=== PATIENT | female | born 1985 | race Caucasian/White ===

== ENCOUNTER 2017-06-26 23:27 | Emergency (ER) | payer SELFPAY ==
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
--- NOTE | 2017-06-27 00:13 | EDPHYS ---
Physician Documentation [facility] Name: Chandrika Alexander Age: 32 yrs Sex: Female : 1985 Arrival Date: 06/26/2017 Time: 23:30 Bed 15 Private MD: ED Physician Adolfo Fleming HPI: 06/27 00:09 This 32 yrs old Female presents to ER via EMS with complaints of ams, denice substance abuse. 00:09 police stop, offered to go to halfway. The patient presents with trouble concentrating. denice Onset: The symptoms/episode began/occurred at an unknown time. Possible causes: drug use, amphetamines. Associated signs and symptoms: The patient has no apparent associated signs or symptoms. Onset: The symptoms/episode began/occurred yesterday. Current symptoms: In the emergency department the patient's symptoms are unchanged from the initial presentation. Patient's baseline: Neuro: alert and fully oriented. Severity of symptoms: At their worst the symptoms were mild in the emergency department the symptoms are unchanged. The patient has experienced similar episodes in the past, a few times. ROVING TECHNICIAN: 06/26 23:38 unable to obtain at this time jd3 Historical: - Allergies: 23:38 Unable to obtain; jd3 - Immunization history:: Adult Immunizations unknown. - Social history:: Smoking status: unknown Patient uses street drugs, cocaine, marijuana. - Family history:: not pertinent. ROS: 06/27 00:11 Constitutional: Negative for fever, chills, and weight loss, Eyes: Negative for injury, denice pain, redness, and discharge, ENT: Negative for injury, pain, and discharge, Neck: Negative for injury, pain, and swelling, Cardiovascular: Negative for chest pain, palpitations, and edema, Respiratory: Negative for shortness of breath, cough, wheezing, and pleuritic chest pain, Abdomen/GI: Negative for abdominal pain, nausea, vomiting, diarrhea, and constipation, Back: Negative for injury and pain, : Negative for injury, bleeding, discharge, and swelling, MS/Extremity: Negative for injury and deformity, Skin: Negative for injury, rash, and discoloration, Psych: Negative for depression, anxiety, suicide ideation, homicidal ideation, and hallucinations, Allergy/Immunology: Negative for hives, rash, and allergies, Endocrine: Negative for neck swelling, polydipsia, polyuria, polyphagia, and marked weight changes. Neuro: Positive for dizziness, weakness. Exam: 00:11 Constitutional: This is a well developed, well nourished patient who is awake, alert, denice and in no acute distress. Head/Face: Normocephalic, atraumatic. Eyes: Pupils equal round and reactive to light, extra-ocular motions intact. Lids and lashes normal. Conjunctiva and sclera are non-icteric and not injected. Cornea within normal limits. Periorbital areas with no swelling, redness, or edema. ENT: Nares patent. No nasal discharge, no septal abnormalities noted. Tympanic membranes are normal and external auditory canals are clear. Oropharynx with no redness, swelling, or masses, exudates, or evidence of obstruction, uvula midline. Mucous membranes moist. Neck: Trachea midline, no thyromegaly or masses palpated, and no cervical lymphadenopathy. Supple, full range of motion without nuchal rigidity, or vertebral point tenderness. No Meningismus. Chest/axilla: Normal chest wall appearance and motion. Nontender with no deformity. No lesions are appreciated. Cardiovascular: Regular rate and rhythm with a normal S1 and S2. No gallops, murmurs, or rubs. Normal PMI, no JVD. No pulse deficits. Respiratory: Lungs have equal breath sounds bilaterally, clear to auscultation and percussion. No rales, rhonchi or wheezes noted. No increased work of breathing, no retractions or nasal flaring. Abdomen/GI: Soft, non-tender, with normal bowel sounds. No distension or tympany. No guarding or rebound. No evidence of tenderness throughout. Back: No spinal tenderness. No costovertebral tenderness. Full range of motion. Skin: Warm, dry with normal turgor. Normal color with no rashes, no lesions, and no evidence of cellulitis. MS/ Extremity: Pulses equal, no cyanosis. Neurovascular intact. Full, normal range of motion. Neuro: Awake and alert, GCS 15, oriented to person, place, time, and situation. Cranial nerves II-XII grossly intact. Motor strength 5/5 in all extremities. Sensory grossly intact. Cerebellar exam normal. Normal gait. Psych: Awake, alert, with orientation to person, place and time. Behavior, mood, and affect are within normal limits. Vital Signs: 06/26 23:38 jd3 23:38 pt rufused jd3 MDM: 23:51 Patient medically screened. [facility] 06/27 00:11 Data reviewed: vital signs, nurses notes. [facility] 06/26 23:45 Order name: EKG; Complete Time: 23:46 [facility] 06/26 23:45 Order name: EKG - Nurse/Tech [facility] 06/26 23:45 Order name: IV Saline Lock [facility] 06/26 23:45 Order name: Labs collected and sent [facility] 06/26 23:45 Order name: Urine Dipstick-Ancillary (obtain specimen) [facility] Administered Medications: 00:53 Not Given (Patient Refused): NS 0.9% 1000 ml IV at 1 bolus Per protocol; 1000 mL bolus jl3 Disposition: 06/27/17 00:13 Discharged to Home. Impression: Abuse of non-psychoactive substances, Weakness. - Condition is Stable. - Discharge Instructions: Polysubstance Abuse, Weakness, Weakness, Weea-ys-Wtjd. - Medication Reconciliation Form, Thank You Letter, Antibiotic Education, Prescription Opioid Use form. - Follow up: Private Physician; When: 2 - 3 days; Reason: Recheck today's complaints, Continuance of care, Re-evaluation by your physician. - Problem is new. - Symptoms have improved. Signatures: Dispatcher [employer] Christoph Devlin rg2 Adolfo Fleming MD MD cha Lowman, John, SALES RECRUITER SALES RECRUITER jl3 Pancho Salter, RN RN jd3
== END 2017-06-27 01:25 | disposition home or self-care (01) ==
LOC: ER 23:27
DX: F55.8 Abuse of other non-psychoactive substances (principal); R53.1 Weakness
CPT/HCPCS: 99284

== ENCOUNTER 2017-06-27 05:50 | Emergency (ER) | payer SELFPAY ==
--- OUTSIDE RECORDS SUMMARY | 2017-06-27 05:53 | XMS REPORT ---
:1985 [facility] Address [address] [place] [address] Care Team Providers Name Role Phone UNKNOWN, REFFERING Primary Care Provider Unavailable Ramon TSAI Unavailable Unavailable Problems This patient has no known problems. Allergies, Adverse Reactions, Alerts This patient has no known allergies or adverse reactions. Medications This patient has no known medications. Encounters Start End Encounter Admission Attending Care Care Encounter Date/Time Date/Time Type Type Clinicians Facility Department ID 2017-06-08 2017-06-08 [facility] [id number] 13:26:00 13:26:00 FERNANDO 2016-10-10 2016-10-10 [facility] [id number] 14:13:00 14:13:00 FER[facility] Results Test Description Test Time Test Comments Text Results Atomic Results Result Comments RPR, Qual 2017-06-13 03:20:00 Test Item Value Reference Range Comments RPR (test code=RPR) Non-Reactive Non-Reactive BHCG, Serum, [id number] 19:32:00 Test Item Value Reference Range Comments Preg Qual [Se] (test code=BSHCG) Negative Negative Alcohol/Ethanol, [id number] 18:59:00 Test Item Value Reference Range Comments Alcohol, Ethyl (test <0.01 g/dL 0.00-0.01 Intoxicated 0.080 g/dL or code=ETOH) more Comprehensive Metabolic [id number] 18:59:00 Test Item Value Reference Range Comments Sodium (test code=NA) 139 mmol/L 135-145 Potassium (test code=K) 4.4 mmol/L 3.5-5.1 Chloride (test code=CL) 106 mmol/L 98-105 Carbon Dioxide (test 25 mmol/L 22-29 code=CO2) Glucose (test code=GLU) 99 mg/dL 70-115 Blood Urea Nitrogen 17 mg/dL 6-20 (test code=BUN) Creatinine (test 1.0 mg/dL 0.5-0.9 code=CREAT) Calcium (test code=CA) 8.6 mg/dL 8.3-10.5 Prot Total (test 5.9 g/dL 6.4-8.3 code=TP) Albumin (test code=ALB) 3.8 g/dL 3.5-5.2 A/G Ratio (test 1.8 Ratio code=AGRATIO) Globulin (test 2.1 2.9-3.1 code=GLOB) Bili Total (test 0.2 mg/dL 0.1-0.9 code=TBIL) Alk Phos (test 69 U/L 35-104 code=APHOS) AST (test code=AST) 10 U/L 1-32 ALT (test code=ALT) 10 U/L 1-33 BUN/Creatinine Ratio 17.0 (test code=BCRATIO) Anion Gap (test 8 mmol/L 7-16 code=AGAP) Estimated GFR (test >60 eGFR (estimated Glomerular code=GFR) mL/min/1.73m2 Filtration Rate) is an estimated value,calculated from the patient's serum creatinine using the MDRD equation.It is NOT the patient's actual GFR. The eGFR provides a more clinicallyuseful measure of kidney disease than serum creatinine alone.This calculation takes sex and race into account, if the informationis provided. If the race is not provided, and the patient isAfrican-Haitian, multiply by 1.212. If sex is not provided, and thepatient is female, multiply by 0.742. Results for patients <18 years ofage have not been validated by the MDRD study and should be interpretedwith caution.eGFR Result Interpretation:eGFR > or=60 is in the Normal RangeeGFR < 60 may mean kidney diseaseeGFR < 15 may mean kidney failureRanges recommended by the National Kidney Foundation,http://nkdep.ni h.gov CBC with [id number] 18:59:00 Test Item Value Reference Range Comments WBC (test code=WBC) 7.8 K/cumm 4.4-10.5 RBC (test code=RBC) 3.85 M/cumm 3.75-5.20 Hemoglobin (test code=HGB) 10.8 gm/dL 12.2-14.8 Hematocrit (test code=HCT) 33.7 % 36.5-44.4 MCV (test code=MCV) 87.5 fL 80-100 MCH (test code=MCH) 28.1 pg 27.0-32.5 MCHC (test code=MCHC) 32.1 g/dL 32.0-37.5 RDW (test code=RDW) 14.0 % 11.5-14.5 Platelet Count (test code=PLTCT) 273 K/cumm 140-440 MPV (test code=MPV) 6.6 fL Diff Method (test code=DIFFM) Auto Neutrophil (test code=NEUT) 65.0 % 36-70 Lymphocyte (test code=LYMPH) 26.4 % 12-44 Monocyte (test code=MONO) 7.0 % 0-11 Eosinophil (test code=EOS) 1.3 % 0-7 Basophil (test code=BASO) 0.3 % 0-2 Neutro Abs (test code=ANEUT) 5.1 K/cumm 1.6-7.4 Lymph Abs (test code=ALYMPH) 2.1 K/cumm 0.5-4.6 Blanco Abs (test code=AMONO) 0.6 K/cumm 0.0-1.2 Eos Abs (test code=AEOS) 0.10 K/cumm 0.00-0.74 Baso Abs (test code=ABASO) 0.0 K/cumm 0.00-0.21 HIV [id number] 21:05:00 Test Item Value Reference Range Comments HIV 1/2 Antibody (test Non-Reactive Non-Reactive HIV1/2 Antibody screen result code=HIV1/2AB) indicates the absence of HIV1 and USX5whseocvbx.However, A Non-Reactive screen result does not rule out exposure orinfection. If an acute infection is suspected, HIV RNA Quantitative is recommended. P24 Antigen (test Non-Reactive Non-Reactive P24 Ag screen result indicates code=P24) the absence of P24 antigen, which is anindicator of HIV-1 acute infection.However, A Non-Reactive screen does not rule out exposure or infection.If acute HIV-1 is suspected, HIV RNA Quantitative is recommended. RPR, [id number] 12:48:00 Test Item Value Reference Range Comments RPR (test code=RPR) Non-Reactive Non-Reactive Thyroid Stimulating Hormone (TSH)2017-01-30 08:32:00 Test Item Value Reference Range Comments TSH (test code=TSH) 1.06 mIU/mL 0.270-4.200 Lipid [id number] 08:26:00 Test Item Value Reference Range Comments Cholesterol (test 134 mg/dL 0-200 code=CHOL) Triglycerides (test 103 mg/dL 9-200 code=TRIG) HDL (test code=HDL) 45 mg/dL 50-60 Chol/HDL (test 3.0 Ratio 0.0-4.4 code=CHOLPHDL) LDL, Calculated (test 68 0-130 (NOTE)RISK OF HEART code=LDLC) DISEASEPublished by Haitian Heart AssociationAnalyte Optimal Boderline Increased RiskCHOL <200 200-239 >240TRIG <150 150-199 >200HDL Male: >60 <40HDL Female: >60 <50LDL <100 130-159 >160LDL NEAR OPTIMAL IS 100-129 VLDL (test code=VLDL) 21 mg/dL 5-40 LDL/HDL (test code=LDLPHDL) 2 BHCG, Serum, [id number] 08:21:00 Test Item Value Reference Range Comments Preg Qual [Se] (test code=BSHCG) Negative Negative CBC with [id number] 13:57:00 Test Item Value Reference Range Comments WBC (test code=WBC) 6.9 K/cumm 4.4-10.5 RBC (test code=RBC) 4.08 M/cumm 3.75-5.20 Hemoglobin (test code=HGB) 11.3 gm/dL 12.2-14.8 Hematocrit (test code=HCT) 35.3 % 36.5-44.4 MCV (test code=MCV) 86.4 fL 80-100 MCH (test code=MCH) 27.7 pg 27.0-32.5 MCHC (test code=MCHC) 32.1 g/dL 32.0-37.5 RDW (test code=RDW) 14.7 % 11.5-14.5 Platelet Count (test code=PLTCT) 303 K/cumm 140-440 MPV (test code=MPV) 7.0 fL Diff Method (test code=DIFFM) Auto Neutrophil (test code=NEUT) 59.3 % 36-70 Lymphocyte (test code=LYMPH) 34.7 % 12-44 Monocyte (test code=MONO) 4.5 % 0-11 Eosinophil (test code=EOS) 1.1 % 0-7 Basophil (test code=BASO) 0.4 % 0-2 Neutro Abs (test code=ANEUT) 4.1 K/cumm 1.6-7.4 Lymph Abs (test code=ALYMPH) 2.4 K/cumm 0.5-4.6 Blanco Abs (test code=AMONO) 0.3 K/cumm 0.0-1.2 Eos Abs (test code=AEOS) 0.07 K/cumm 0.00-0.74 Baso Abs (test code=ABASO) 0.0 K/cumm 0.00-0.21 Comprehensive Metabolic [id number] 13:42:00 Test Item Value Reference Range Comments Sodium (test code=NA) 142 mmol/L 135-145 Potassium (test code=K) 3.9 mmol/L 3.5-5.1 Chloride (test code=CL) 105 mmol/L 98-105 Carbon Dioxide (test 25 mmol/L 22-29 code=CO2) Glucose (test code=GLU) 78 mg/dL 70-115 Blood Urea Nitrogen 19 mg/dL 6-20 (test code=BUN) Creatinine (test 1.0 mg/dL 0.5-0.9 code=CREAT) Calcium (test code=CA) 9.2 mg/dL 8.3-10.5 Prot Total (test 6.4 g/dL 6.4-8.3 code=TP) Albumin (test code=ALB) 3.9 g/dL 3.5-5.2 A/G Ratio (test 1.6 Ratio code=AGRATIO) Globulin (test 2.5 2.9-3.1 code=GLOB) Bili Total (test 0.3 mg/dL 0.1-0.9 code=TBIL) Alk Phos (test 70 U/L 35-104 code=APHOS) AST (test code=AST) 11 U/L 1-32 ALT (test code=ALT) 10 U/L 1-33 BUN/Creatinine Ratio 19.0 (test code=BCRATIO) Anion Gap (test 12 mmol/L 7-16 code=AGAP) Estimated GFR (test >60 eGFR (estimated Glomerular code=GFR) mL/min/1.73m2 Filtration Rate) is an estimated value,calculated from the patient's serum creatinine using the MDRD equation.It is NOT the patient's actual GFR. The eGFR provides a more clinicallyuseful measure of kidney disease than serum creatinine alone.This calculation takes sex and race into account, if the informationis provided. If the race is not provided, and the patient isAfrican-Haitian, multiply by 1.212. If sex is not provided, and thepatient is female, multiply by 0.742. Results for patients <18 years ofage have not been validated by the MDRD study and should be interpretedwith caution.eGFR Result Interpretation:eGFR > or=60 is in the Normal RangeeGFR < 60 may mean kidney diseaseeGFR < 15 may mean kidney failureRanges recommended by the National Kidney Foundation,http://nkdep.ni h.gov Drugs of Abuse Screen, [id number] 02:06:00 Test Item Value Reference Range Comments Amphetamine (test code=AMPH) Negative Negative For diagnostic purposes only, positive results should always be assessedin conjunctionwith the patient's medical history,clinical examination and otherfindings.To fulfill legal requirements, a more specific alternate chemical methodmust be used inorder to obtain a Confirmed analytical result. GC/MS is the preferred confirmatory method. Barbiturates (test code=YFN) Negative Negative Benzodiazepine (test Negative Negative code=ELLIOTT) Cocaine (test code=COCA) Negative Negative Methadone (test code=MTHD) Negative Negative Opiates (test code=OPIA) Negative Negative PCP (test code=PCP) Negative Negative Propoxyphene (test Negative Negative code=PROPOX) THC (test code=THC) POSITIVE Negative RPR, [id number] 02:01:00 Test Item Value Reference Range Comments RPR (test code=RPR) Non-Reactive Non-Reactive Thyroid Stimulating Hormone (TSH)2016-10-10 23:08:00 Test Item Value Reference Range Comments TSH (test code=TSH) 1.65 mIU/mL 0.270-4.200 Urinalysis [id number] 12:51:00 Test Item Value Reference Range Comments Color (test code=COLOR) Yellow Yellow,Straw,Pl yellow Clarity (test code=CLAR) Clear Clear Specific Powell (test code=SPGR) 1.015 1.001-1.035 pH (test code=PH) 6.5 5.0-9.0 Ketone (test code=KET) Negative mg/dL Negative Glucose (test code=GLUCUR) Negative mg/dL Negative Protein (test code=PROT) Negative mg/dL Negative Bilirubin (test code=BILI) Negative mg/dL Negative Occult Blood (test code=UDOB) Mod to Large Negative Urobilinogen (test code=UROB) 0.2 mg/dL 0.2-1.0 Nitrite (test code=NIT) Negative Negative Leuk Esterase (test code=LEUK) Large Negative Micros Exam (test code=MEXAM) Indicated Epithelial Cells (test code=EPI) 6-9 /LPF 0-30 WBC, Urine (test code=UWBC) 20-29 /HPF 0-5 RBC, Urine (test code=URBC) 3-5 /HPF 0-5 Bacteria (test code=BACT) Moderate /HPF CBC with [id number] 12:31:00 Test Item Value Reference Range Comments WBC (test code=WBC) 8.3 K/cumm 4.4-10.5 RBC (test code=RBC) 4.21 M/cumm 3.75-5.20 Hemoglobin (test code=HGB) 11.4 gm/dL 12.2-14.8 Hematocrit (test code=HCT) 35.4 % 36.5-44.4 MCV (test code=MCV) 83.9 fL 80-100 MCH (test code=MCH) 27.1 pg 27.0-32.5 MCHC (test code=MCHC) 32.3 g/dL 32.0-37.5 RDW (test code=RDW) 15.4 % 11.5-14.5 Platelet Count (test code=PLTCT) 270 K/cumm 140-440 MPV (test code=MPV) 7.1 fL Diff Method (test code=DIFFM) Auto Neutrophil (test code=NEUT) 74.2 % 36-70 Lymphocyte (test code=LYMPH) 17.9 % 12-44 Monocyte (test code=MONO) 5.9 % 0-11 Eosinophil (test code=EOS) 1.4 % 0-7 Basophil (test code=BASO) 0.5 % 0-2 Neutro Abs (test code=ANEUT) 6.1 K/cumm 1.6-7.4 Lymph Abs (test code=ALYMPH) 1.5 K/cumm 0.5-4.6 Blanco Abs (test code=AMONO) 0.5 K/cumm 0.0-1.2 Eos Abs (test code=AEOS) 0.12 K/cumm 0.00-0.74 Baso Abs (test code=ABASO) 0.0 K/cumm 0.00-0.21 BHCG, Urine, [id number] 12:25:00 Test Item Value Reference Range Comments Preg Qual [Ur] (test code=HUHCG) Negative Negative Comprehensive Metabolic [id number] 12:24:00 Test Item Value Reference Range Comments Sodium (test code=NA) 138 mmol/L 135-145 Potassium (test code=K) 3.9 mmol/L 3.5-5.1 Chloride (test code=CL) 107 mmol/L 98-105 Carbon Dioxide (test 21 mmol/L 22-29 code=CO2) Glucose (test code=GLU) 90 mg/dL 70-115 Blood Urea Nitrogen 7 mg/dL 6-20 (test code=BUN) Creatinine (test 0.7 mg/dL 0.5-0.9 code=CREAT) Calcium (test code=CA) 8.3 mg/dL 8.3-10.5 Prot Total (test 5.8 g/dL 6.4-8.3 code=TP) Albumin (test code=ALB) 3.5 g/dL 3.5-5.2 A/G Ratio (test 1.5 Ratio code=AGRATIO) Globulin (test 2.3 2.9-3.1 code=GLOB) Bili Total (test 0.4 mg/dL 0.1-0.9 code=TBIL) Alk Phos (test 87 U/L 35-104 code=APHOS) AST (test code=AST) 12 U/L 1-32 ALT (test code=ALT) 14 U/L 1-33 BUN/Creatinine Ratio 10.0 (test code=BCRATIO) Anion Gap (test 10 mmol/L 7-16 code=AGAP) Estimated GFR (test >60 eGFR (estimated Glomerular code=GFR) mL/min/1.73m2 Filtration Rate) is an estimated value,calculated from the patient's serum creatinine using the MDRD equation.It is NOT the patient's actual GFR. The eGFR provides a more clinicallyuseful measure of kidney disease than serum creatinine alone.This calculation takes sex and race into account, if the informationis provided. If the race is not provided, and the patient isAfrican-Haitian, multiply by 1.212. If sex is not provided, and thepatient is female, multiply by 0.742. Results for patients <18 years ofage have not been validated by the MDRD study and should be interpretedwith caution.eGFR Result Interpretation:eGFR > or=60 is in the Normal RangeeGFR < 60 may mean kidney diseaseeGFR < 15 may mean kidney failureRanges recommended by the National Kidney Foundation,http://nkdep.ni h.gov
--- OUTSIDE RECORDS SUMMARY | 2017-06-27 05:53 | XMS REPORT | Clinical Summary ---
:1985 Author Organization [facility] Address [address] [place] [address] Care Team Providers Name Role Phone Asked, No Pcp Primary Care Provider Unavailable Allergies No Known Allergies Current Medications Prescription Sig. Disp. Refills Start Date End Date Status FLUoxetine (PROzac) 20 MG Take 20 mg by Active capsule mouth. Active Problems Not on file Encounters Date Type Specialty Care Team Description 08/24/2016 - Emergency Emergency Medicine Bulmaro Miller Other depression 08/26/2016 MD Issa (Primary Dx) Thanh Estevez MD after 06/26/2016 Social History Tobacco Use Types Packs/Day Years Used Date Never Smoker Alcohol Use Drinks/Week oz/Week Comments Yes social drinker Sex Assigned at Date Recorded Not on file Last Filed Vital Signs Vital Sign Reading Time Taken Blood Pressure 119/68 08/26/2016 10:06 AM CDT Pulse 84 08/26/2016 10:06 AM CDT Temperature 36.6 C (97.9 F) 08/26/2016 10:06 AM CDT Respiratory Rate 16 08/26/2016 10:06 AM CDT Oxygen Saturation 96% 08/26/2016 10:06 AM CDT Inhaled Oxygen Concentration - - Weight - - Height 165.1 cm (5' 5") 08/24/2016 10:47 PM CDT Body Mass Index - - Plan of Treatment Not on file Results ECG ED Preliminary Interpretation - NOT AN ORDER (09/19/2016 3:48 PM) Narrative Bulmaro Miller MD 09/19/20163:48 PM ECG ED Preliminary Interpretation - Not an Order Performed by: BULMARO MILLER Authorized by: BULMARO MILLER ECG reviewed by ED Physician in the absence of a nurse: yes Interpretation: Interpretation: abnormal Rate: ECG rate:70 ECG rate assessment: normal Rhythm: Rhythm: sinus rhythm QRS: QRS axis:Normal QRS intervals:Normal Conduction: Conduction: normal ST segments: ST segments:Normal T waves: T waves: normal Comments: Abnormal ECG with no significant change. Urinalysis screen and microscopy, with reflex to culture (08/24/2016 10:10 PM) Component Value Ref Range Specimen site Clean catch Color, UA Dark Yellow Appearance, UA Hazy Specific gravity, UA 1.029 1.001 - 1.035 pH, UA 5.0 5.0 - 8.5 Protein, UA 1+ (A) Negative Glucose, UA Negative Negative Ketones, UA Negative Negative Bilirubin, UA Negative Negative Blood, UA Negative Negative Nitrite, UA Positive (A) Negative Urobilinogen, UA <2.0 <2.0 Leukocyte esterase, UA Large (A) Negative WBC, UA 145 (H) 0 - 4 /HPF RBC, UA 14 (H) 0 - 2 /HPF Bacteria, UA Many (A) None seen Yeast, UA None seen Yeast with pseudohyphae, UA None seen Calcium oxalate crystals, UA Few Specimen Performing Laboratory Urine [facility] DEPARTMENT OF PATHOLOGY AND [employer] MEDICINE [address] [place] [address] Estimated GFR (08/24/2016 10:10 PM) Component Value Ref Range GFR Non Af Amer 65 mL/min/1.73 m2 GFR Af Amer 79 mL/min/1.73 m2 Comment: Chronic kidney disease: <60 mL/min/1.73m2 Kidney failure: <15 mL/min/1.73m2 The estimated GFR is calculated from the IDMS-traceable Modification of Diet in Renal Disease Equation. The accuracy of the calculation is poor when the creatinine is normal. Calculated values >90 mL/min/1.73m2 are not reported. This equation has not been validated in children (<18 years), women, the elderly (>70 years), or ethnic groups other than Caucasians and Americans. Specimen Performing Laboratory Plasma specimen [facility] DEPARTMENT OF PATHOLOGY AND [employer] MEDICINE [address] [place] [address] hCG qualitative, urine screen (08/24/2016 10:10 PM) Component Value Ref Range hCG qualitative, urine NegativeComment: Sensitivity of HCG test: 25 mIU/mL Specimen Performing Laboratory Urine [facility] DEPARTMENT OF PATHOLOGY AND GENOMIC MEDICINE [address] [place] [address] Urine drugs of abuse screen (08/24/2016 10:10 PM) Component Value Ref Range Amphetamine screen, urine Negative Barbiturate screen, urine Negative Benzodiazepine screen, urine Negative Cannabinoid screen, urine Positive (A) Cocaine screen, urine Positive (A) Methadone metabolite (EDDP), urine Negative Opiates screen, urine Negative Oxycodone screen, urine Negative Phencyclidine screen, urine Negative Tricyclic screen, urine Negative Comment: Drug screen minimum concentration of detectability Wmzempnrqoeo6145 ng/mL Barbiturates 200 ng/mL Dyhoofmqdpabcwy413 ng/mL Zeingoj633 ng/mL Ewjwqwrea120 ng/mL Ltuygdu041 ng/mL Zbunfgmgb364 ng/mL Phencyclidine 25 ng/mL Jckqmkoeuqew39 ng/mL Kghyaugvwa7797 ng/mL Negative test results indicates presumptive evidence of lack of clinically significant drug concentration in this urine specimen. Positive test results are presumptive evidence of clinically significant drug concentration in this urine specimen. Testing performed for medical purposes only. Specimen Performing Laboratory Urine [facility] DEPARTMENT OF PATHOLOGY AND GENOMIC MEDICINE [address] [place] [address] Gram stain (08/24/2016 10:10 PM) Component Value Ref Range Gram stain isolate Many WBC's Occasional Gram negative rods Comment: Specimen Information Specimen Source: Urine Specimen Site: Clean catch Specimen Performing Laboratory Urine [facility] DEPARTMENT OF PATHOLOGY AND [facility] MEDICINE [address] [place] [address] CBC with platelet and differential (08/24/2016 10:10 PM) Component Value Ref Range WBC 8.32 4.50 - 11.00 k/uL RBC 4.25 4.20 - 5.50 m/uL HGB 11.7 (L) 12.0 - 16.0 g/dL HCT 37.4 37.0 - 47.0 % MCV 88.0 82.0 - 100.0 fL MCH 27.5 27.0 - 34.0 pg MCHC 31.3 31.0 - 37.0 g/dL RDW - SD 46.6 37.0 - 55.0 fL MPV 9.7 8.8 - 13.2 fL Platelet count 207 150 - 400 k/uL Nucleated RBC 0.00 /100 WBC Neutrophils 54.5 39.0 - 69.0 % Lymphocytes 35.6 25.0 - 45.0 % Monocytes 7.9 0.0 - 10.0 % Eosinophils 0.8 0.0 - 5.0 % Basophils 0.5 0.0 - 1.0 % Immature granulocytes 0.7Comment: "Immature granulocytes" 0.0 - 1.0 % (promyelocytes, myelocytes, metamyelocytes) Specimen Performing Laboratory Blood [facility] DEPARTMENT OF PATHOLOGY AND GENOMIC MEDICINE [address] [place] [address] Urine culture (08/24/2016 10:10 PM) Component Value Ref Range Urine culture isolate Escherichia coli >10-5 cfu/ml (A) Comment: Specimen Information Specimen Source: Urine Specimen Site: Clean catch Urine culture isolate Streptococcus group B 10-3 cfu/ml (A) Urine culture isolate Mixed Gram positive mica 10-4 cfu/ml (A) Specimen Performing Laboratory Urine [facility] DEPARTMENT OF PATHOLOGY AND GENOMIC MEDICINE [address] [place] [address] Organism Antibiotic Method Susceptibility Escherichia coli Ampicillin NINO <=2 mcg/mL: Susceptible Escherichia coli Amoxicillin/Clavulanate NINO 4/2 mcg/mL: Susceptible Escherichia coli Amikacin NINO <=4 mcg/mL: Susceptible Escherichia coli Aztreonam NINO <=1 mcg/mL: Susceptible Escherichia coli Ceftazidime NINO <=0.5 mcg/mL: Susceptible Escherichia coli Ciprofloxacin NINO <=0.5 mcg/mL: Susceptible Escherichia coli Ceftriaxone NINO <=0.5 mcg/mL: Susceptible Escherichia coli Cefuroxime Sodium NINO <=4 mcg/mL: Susceptible Escherichia coli Cefazolin NINO <=1 mcg/mL: Susceptible Escherichia coli Cefipime NINO <=0.5 mcg/mL: Susceptible Escherichia coli Nitrofurantoin NINO <=16 mcg/mL: Susceptible Escherichia coli Cefoxitin NINO <=4 mcg/mL: Susceptible Escherichia coli Gentamicin NINO <=1 mcg/mL: Susceptible Escherichia coli Imipenem NINO <=0.25 mcg/mL: Susceptible Escherichia coli Levofloxacin NINO <=1 mcg/mL: Susceptible Escherichia coli Meropenem NINO <=0.125 mcg/mL: Susceptible Escherichia coli Tobramycin NINO 2 mcg/mL: Susceptible Escherichia coli Ampicillin/Sulbactam NINO 2/1 mcg/mL: Susceptible Escherichia coli Trimethoprim/Sulfamethoxazole NINO >2/38 mcg/mL: Resistant Escherichia coli Tetracycline NINO >8 mcg/mL: Resistant Escherichia coli Piperacillin/Tazobactam NINO <=2/4 mcg/mL: Susceptible Escherichia coli Ertapenem NINO <=0.125 mcg/mL: Susceptible Thyroid stimulating hormone (08/24/2016 10:10 PM) Component Value Ref Range TSH 3.59 0.27 - 4.20 uIU/mL Specimen Performing Laboratory Plasma specimen [facility] DEPARTMENT OF PATHOLOGY AND [facility] MEDICINE [address] [place] [address] T4, free (08/24/2016 10:10 PM) Component Value Ref Range T4, free 1.1 0.9 - 1.7 ng/dL Specimen Performing Laboratory Plasma specimen [facility] DEPARTMENT OF PATHOLOGY [facility] MEDICINE [address] [place] [address] Alcohol level, blood (08/24/2016 10:10 PM) Component Value Ref Range Alcohol None Detected mg/dL Comment: Normal None Detected Legal Intoxication in [place]80 mg/dL (0.08%) - Whole Blood Toxic Owdzdntlnycss974 mg/dL (0.2%) Potentially Yuezy463 - 500 mg/dL (0.35 - 0.5%) Alcohol percent None Detected % Specimen Performing Laboratory Plasma specimen [facility] DEPARTMENT PATHOLOGY [address] [address] Acetaminophen level (08/24/2016 10:10 PM) Component Value Ref Range Acetaminophen level <15.0 10.0 - 30.0 ug/mL Comment: Therapeutic 10-30 ug/mL Possible Toxicity 150-200 ug/mL Probable Toxicity >200 ug/mL Specimen Performing Laboratory Plasma specimen [facility] DEPARTMENT OF PATHOLOGY [facility] [address] [place] [address] Salicylate level (08/24/2016 10:10 PM) Component Value Ref Range Salicylate <3.0 3.0 - 30.0 mg/dL Specimen Performing Laboratory Plasma specimen [facility] DEPARTMENT OF PATHOLOGY [facility] [address] [place] [id number] Comprehensive metabolic panel (08/24/2016 10:10 PM) Component Value Ref Range Sodium 141 135 - 148 mEq/L Potassium 3.9 3.5 - 5.0 mEq/L Chloride 103 98 - 112 mEq/L CO2 23 (L) 24 - 31 mEq/L Anion gap 15 7 - 15 mEq/L Comment: Starting from June , anion gap calculation no longer incorporates potassium. Please note the change. BUN 18 6 - 20 mg/dL Creatinine 1.0 (H) 0.5 - 0.9 mg/dL Glucose 84 65 - 99 mg/dL Calcium 8.9 8.3 - 10.2 mg/dL Protein 6.4 6.3 - 8.3 g/dL Comment: [place] 4.6-7.0 g/dL 1 week 4.4-7.6 g/dL 7 months-1year5.1-7.3 g/dL 1-2 years5.6-7.5 g/dL >3 years6.0-8.0 g/dL 18-150 6.3-8.3 g/dL Albumin 3.3 (L) 3.5 - 5.0 g/dL A/G ratio 1.1 0.7 - 3.8 Alkaline phosphatase 72 35 - 104 U/L AST 11 10 - 35 U/L ALT 14 5 - 50 U/L Total bilirubin <0.2 0.0 - 1.2 mg/dL Specimen Performing Laboratory Plasma specimen [facility] DEPARTMENT OF PATHOLOGY AND GENOMIC MEDICINE [address] [place] [address] ECG 12 lead (08/24/2016 9:58 PM) Component Value Ref Range Ventricular rate 70 Atrial rate 70 RI interval 122 QRSD interval 76 QT interval 396 QTC interval 427 P axis 1 88 QRS axis 1 -12 T wave axis -2 EKG impression Normal sinus rhythm-Moderate voltage criteria for LVH, may be normal variant-Borderline ECG-No previous ECGs available- Specimen Performing Laboratory [facility] [address] [place] [address] after 06/26/2016
--- NOTE | 2017-06-27 06:57 | EDPHYS ---
Physician Documentation [facility] Name: Chandrika Alexander Age: 32 yrs Sex: Female : 1985 Arrival Date: 06/27/2017 Time: 05:51 Bed 18 Private MD: ED Physician Adolfo Fleming HPI: 06/27 05:58 This 32 yrs old Female presents to ER via EMS with complaints of suicidal kb ideations. 05:58 The patient presents to the emergency department with suicide ideation, and the patient kb has a plan, to shoot self. Onset: The symptoms/episode began/occurred "when I was little". Past psychiatric history: the patient has a previous inpatient psychiatric history, at [facility]. Associated signs and symptoms: Pertinent positives; suicide ideation, Pertinent negatives: abdominal pain, anxiety, chest pain, chills, delusions, depression, fever, hallucinations, headache, homicidal ideation, nausea, night sweats, palpitations, paranoia, shortness of breath, substance abuse, tremor, vomiting. Severity of symptoms: At their worst the symptoms were moderate in the emergency department the symptoms are unchanged. The patient has experienced similar episodes in the past, multiple times. The patient has been recently seen at the [facility] Emergency Department, today, for unrelated complaints. Pt states she called 911 because she needed to come here to get transported to [facility]. States she is having suicidal ideations that started when she was a child. Her plan is to shoot herself behind a trash can at the [employer] in [place]. States she does not have access to a gun, but would steal. Pt was going to be arrested by [employer] for public intoxication, but told them she was suicidal so they called EMS to bring her to the ER. . SPANISH TUTOR: 07:11 pt refused to answer questions [id number] Historical: - Allergies: 05:56 Unable to obtain; aa1 - Home Meds: 05:56 Unable to obtain [Active]; aa1 - PMHx: 05:56 Unable to obtain; aa1 - PSHx: 05:56 Unable to obtain; aa1 - Immunization history:: Adult Immunizations unknown. - Social history:: Smoking status: unknown Patient uses street drugs, cocaine, marijuana. - Unable to obtain history due to: patient being uncooperative. ROS: 05:58 Constitutional: Negative for fever, chills, and weight loss, Cardiovascular: Negative kb for chest pain, palpitations, and edema, Respiratory: Negative for shortness of breath, cough, wheezing, and pleuritic chest pain, Abdomen/GI: Negative for abdominal pain, nausea, vomiting, diarrhea, and constipation, Back: Negative for injury and pain, : Negative for injury, bleeding, discharge, and swelling, MS/Extremity: Negative for injury and deformity, Skin: Negative for injury, rash, and discoloration, Neuro: Negative for headache, weakness, numbness, tingling, and seizure. 05:58 Psych: Positive for suicidal ideation, Negative for anxiety, depression, drug dependence, alcohol dependence, auditory hallucinations, visual hallucinations, homicidal ideation, insomnia, suicide gesture. Exam: 05:58 Constitutional: This is a well developed, well nourished patient who is awake, alert, kb and in no acute distress. Head/Face: Normocephalic, atraumatic. Chest/axilla: Normal chest wall appearance and motion. Nontender with no deformity. No lesions are appreciated. Cardiovascular: Regular rate and rhythm with a normal S1 and S2. No gallops, murmurs, or rubs. Normal PMI, no JVD. No pulse deficits. Respiratory: Lungs have equal breath sounds bilaterally, clear to auscultation and percussion. No rales, rhonchi or wheezes noted. No increased work of breathing, no retractions or nasal flaring. Abdomen/GI: Soft, non-tender, with normal bowel sounds. No distension or tympany. No guarding or rebound. No evidence of tenderness throughout. Skin: Warm, dry with normal turgor. Normal color with no rashes, no lesions, and no evidence of cellulitis. MS/ Extremity: Pulses equal, no cyanosis. Neurovascular intact. Full, normal range of motion. Neuro: Awake and alert, GCS 15, oriented to person, place, time, and situation. Cranial nerves II-XII grossly intact. Motor strength 5/5 in all extremities. Sensory grossly intact. Cerebellar exam normal. Normal gait. 05:58 Psych: Behavior/mood is suicidal, Affect is flat, Oriented to person, place, time, Patient having thoughts of suicide. Plan for suicide is shoot self Judgement / Insight is normal. Memory is normal. Delusions/hallucinations are not present. Vital Signs: 05:56 BP 103 / 71; Pulse 71; Resp 16; Temp 98.1; Pulse Ox 100% on R/A; Weight 72.57 kg (R); aa1 MDM: 05:51 Patient medically screened. kb 05:58 Data reviewed: vital signs, nurses notes. Data interpreted: Pulse oximetry: on room air kb is 100 %. Interpretation: normal. 06:49 ED course: Nurse went in to draw blood, pt refused and said "I just want a discharge." kb Pt told nurse she just wanted a place to sleep and something to eat. . 06:54 Counseling: I had a detailed discussion with the patient and/or guardian regarding: the kb historical points, exam findings, and any diagnostic results supporting the discharge/admit diagnosis, the need for outpatient follow up, a psychiatrist, to return to the emergency department if symptoms worsen or persist or if there are any questions or concerns that arise at home. ED course: Pt refusing care here. States she just wanted a place to sleep and now wants to leave. . 06:58 ED course: [facility] spoke with pt. Pt reports she is not currently kb suicidal. Pt admitted to using cocaine at midnight and smoking marijuana after leaving here earlier in the night. . Administered Medications: No medications were administered Disposition: 06/27/17 06:56 Discharged to Home. Impression: Cocaine abuse. - Condition is Stable. - Discharge Instructions: Polysubstance Abuse. - Medication Reconciliation Form, Thank You Letter, Antibiotic Education, Prescription Opioid Use form. - Follow up: Emergency Department; When: As needed; Reason: Worsening of condition. Follow up: Private Physician; When: 2 - 3 days; Reason: Recheck today's complaints, Continuance of care, Re-evaluation by your physician. Addendum: 06/29/2017 07:11 Co-signature as Attending Physician, Adolfo Fleming MD I agree with the assessment and c perez plan of care. Signatures: Dispatcher [employer] EDCarolin Zavala FNP-C FNP-Sommer Coombs, RN RN aa1 Adolfo Fleming MD MD cha Davies, Jonathon RN RN jd3 Corrections: (The following items were deleted from the chart) 06/27 06:57 05:58 Pt states she called 911 because she needed to come here to get transported to [facility]. States she is having suicidal ideations that started when she was a child. Her plan is to shoot herself behind a trash can at the [employer] in [place]. States she does not have access to a gun, but would steal.. 07:08 05:58 Urine Test ordered. j 07: 05:58 EKG - Nurse/Tech ordered. [facility] 07: 05:58 IV Saline Lock ordered. j 07: 05:58 Labs collected and sent ordered. [facility] 07: 05:58 Urine Dipstick-Ancillary ordered. jd3
--- NOTE | 2017-06-27 06:57 | ER ---
Nurse's Notes [facility] Name: Chandrika Alexander Age: 32 yrs Sex: Female : 1985 Arrival Date: 06/27/2017 Time: 05:51 Bed 18 Private MD: Diagnosis: Cocaine abuse Presentation: 06/27 05:52 Presenting complaint: EMS states: pt was picked up by PD at a gas station for loitering aa1 and she told them she was suicidal and wanted to come to the ED. Upon arrival to ED pt asked if she could sleep here for the night and reported that she is feeling suicidal bc she's homeless. Transition of care: patient was not received from another setting of care. Onset of symptoms was June 27, 2017. Care prior to arrival: None. 05:52 Method Of Arrival: EMS: [facility] aa1 05:52 Acuity: MAURI 3 aa1 Triage Assessment: 05:56 General: Appears in no apparent distress. comfortable, unkempt, Behavior is aa1 inappropriate for age, uncooperative. BOX SPINNER: 07:11 pt refused to answer questions jd3 Historical: - Allergies: 05:56 Unable to obtain; aa1 - Home Meds: 05:56 Unable to obtain [Active]; aa1 - PMHx: 05:56 Unable to obtain; aa1 - PSHx: 05:56 Unable to obtain; aa1 - Immunization history:: Adult Immunizations unknown. - Social history:: Smoking status: unknown Patient uses street drugs, cocaine, marijuana. - Unable to obtain history due to: patient being uncooperative. Screenin:10 Abuse screen: unknown. Nutritional screening: No deficits noted. Tuberculosis jd3 screening: unknown. Fall Risk None identified. Assessment: 06:14 General: Appears in no apparent distress. Behavior is agitated. Pain: Quality of pain jd3 is described as refusing to answer questions. Neuro: Level of Consciousness is awake, alert, Oriented to person. Cardiovascular: Reports refused assessment Patient's skin is warm and dry. Respiratory: Reports refused assessment Airway is patent Respiratory effort is even, unlabored, Respiratory pattern is regular, symmetrical. GI: Abdomen is round Reports refused assessment. : Reports refused assessment. EENT: Reports refused assessment. Derm: Skin is intact, Skin is dry, Skin is normal, Skin temperature is warm. Musculoskeletal: Range of motion: intact in all extremities. 07:16 Reassessment: Patient appears in no apparent distress at this time. Patient and/or jd3 family updated on plan of care and expected duration. Pain level reassessed. pt refused treatment reporting ready to go home, provider notified, discharge orders received, pt assisted to the front of the ER via wheel chair. even and steady gait upon upon discharge. Vital Signs: 05:56 BP 103 / 71; Pulse 71; Resp 16; Temp 98.1; Pulse Ox 100% on R/A; Weight 72.57 kg (R); aa1 ED Course: 05:51 Patient arrived in ED. am2 05:51 Carolin Ovied[facility]C [facility]. kb 05:51 Adolfo Fleming MD is Attending Physician. kb 05:54 Triage completed. aa1 05:56 Arm band placed on right wrist. Patient placed in an exam room, on a stretcher. aa1 05:58 Pancho Salter RN is Primary Nurse. jd3 06:00 Safety Checks: Personal items have been removed The door is open or patient has been jd3 placed in a hallway bed/chair. There are no family/friend visitors at this time. 06:15 Safety Checks: Personal items have been removed The door is open or patient has been jd3 placed in a hallway bed/chair. There are no family/friend visitors at this time. 06:30 Safety Checks: Personal items have been removed The door is open or patient has been jd3 placed in a hallway bed/chair. There are no family/friend visitors at this time. 06:32 Safety checks: Family/friend present: no. Safety checks: Items removed: yes. Door oe open/sign placed on door: yes. 06:45 Safety Checks: Personal items have been removed The door is open or patient has been jd3 placed in a hallway bed/chair. There are no family/friend visitors at this time. 06:51 Safety checks: Items removed: yes. Door open/sign placed on door: yes. Family/friend oe present:. 07:00 Safety Checks: Personal items have been removed The door is open or patient has been jd3 placed in a hallway bed/chair. There are no family/friend visitors at this time. 07:10 Patient has correct armband on for positive identification. jd3 07:11 Safety Checks: Personal items have been removed The door is open or patient has been jd3 placed in a hallway bed/chair. There are no family/friend visitors at this time. 07:12 No provider procedures requiring assistance completed. Patient did not have IV access jd3 during this emergency room visit. Administered Medications: No medications were administered Outcome: 06:56 Discharge ordered by . leandro 07:14 Discharged to home ambulatory. jd3 07:14 Discharged to home ambulatory, pt refused treatment 07:14 Condition: stable 07:14 Discharge instructions given to patient, Instructed on discharge instructions, follow up and referral plans. 07:19 Patient left the ED. jd3 Signatures: Carolin Oviedo, PRABHJOT-C PRABHJOT-Sommer Coombs RN RN aa1 Sanjeev Castaneda Amanda am2 Pancho Salter RN RN jd3 Corrections: (The following items were deleted from the chart) 05:57 05:52 Acuity: MAURI 5 aa1 aa1 06:41 06:32 Safety checks: Door open/sign placed on door: yes. oe oe 07:13 06:39 Subjective: Patient's mood is irritable, Having thoughts of suicide. Denies jd3 suicidal plan. jd3 07:13 06:39 Objective: Patient is uncooperative, jd3 jd3 07:13 06:39 Suicide Risk Assessment: Sad Person Scale: Sex of patient: Female: Score 0 jd3 points. Age of patient: Score 1 point if patient 15-34. Depression: Score 1 point if signs of depression are present. Previous Attempt: Score 1 point if patient has previously attempted suicide. Substance Abuse: Score 1 point if patient abuses alcohol or drugs. Rational Thinking: Score 1 point if patient is lacking rational thinking. Social Support: Score 1 point if social support is lacking and/or unavailable. Organized Plan: Score 0 if patient did not have an organized plan in place. Relationship: Score 1 point if patient is , , , or for a single male Chronic Sickness: Score 0 point if patient does not have a chronic illness, debilitating, or severe disorder. TOTAL POINTS: If total points are 7-10, the proposed clinical action is to hospitalize or commit. Implement suicide precautions. jd3 07:13 06:39 Safety Checks: Personal items have been removed. Door is open. No visitors are arline present at this time. jvitaly 06:39 Patient uses cocaine, Patient uses marijuana arline jvitaly 06:39 Interventions: Removed personal items and placed in bag. arline nunn 07:12 Commitment: arline nunn
== END 2017-06-27 07:19 | disposition home or self-care (01) ==
LOC: ER 05:50
DX: F14.10 Cocaine abuse, uncomplicated (principal)
CPT/HCPCS: 99283

== ENCOUNTER 2019-01-27 05:52 | Emergency (ER) | payer SELFPAY ==
[2019-01-27 06:55] LABS: Absolute Lymphocytes (CBC) 1.8 K/uL (0.7-4.9); Basophils % 0.8 % (0-1.3); Hematocrit 36.1 % (36.0-45.0); Lymphocytes % 27.5 % (15.3-44.8); MPV 7.8 fL (7.6-11.3); RBC Red Blood Cell Count 4.19 M/uL (3.86-4.86)
[2019-01-27 06:59] LABS: Protime INR 0.95
[2019-01-27 07:18] LABS: Barbiturates NEGATIVE (NEGATIVE); Benzodiazepines NEGATIVE (NEGATIVE); Cocaine POSITIVE (NEGATIVE); METHAMPHETAM NEGATIVE (NEGATIVE); Methadone NEGATIVE (NEGATIVE); Opiates NEGATIVE (NEGATIVE); Phencyclidine NEGATIVE (NEGATIVE); THC Cannibis NEGATIVE (NEGATIVE)
[2019-01-27 07:51] LABS: ALT/SGPT 21 U/L (12-78); AST/SGOT 14 U/L (15-37); Albumin 3.4 g/dL (3.4-5.0); Alkaline Phosphatase 94 U/L (45-117); BUN Blood Urea Nitrogen 16 mg/dL (7-18); Bicarbonate 26 mmol/L (21-32); Bilirubin Direct < 0.1 mg/dL (0-0.2); Bilirubin Total 0.2 mg/dL (0.2-1.0); Glucose Level 96 mg/dL (74-106); Potassium 3.6 mmol/L (3.5-5.1); Protein, Total 6.8 g/dL (6.4-8.2); Sodium Level 140 mmol/L (136-145)
--- NOTE | 2019-01-27 09:57 | EKG ---
Test Date: 2019-01-27 Test Time: 06:24:53 Steam Clean Machine Operator: GREG MEASUREMENT RESULTS: Intervals: Rate: 82 VT: 148 QRSD: 80 QT: 374 QTc: 436 [place]: P: 48 VT: 148 QRS: -10 T: 15 INTERPRETIVE STATEMENTS: Normal sinus rhythm Minimal voltage criteria for LVH, may be normal variant Borderline ECG Compared to ECG 03/23/2017 20:57:52 Left ventricular hypertrophy now present Electronically Signed On 01-27-19 09:56:59 CDT by Law Williamson
[2019-01-27] MEDS ORDERED: hydrOXYzine HCl 25 MG TAB ONE (11:03)
[2019-01-27] MEDS ORDERED: OLANZapine 2.5 MG TAB PO ONE (11:15)
[2019-01-27] MEDS ORDERED: ESCITALOPRAM 20 MG TAB PO ONE (11:15)
[2019-01-27 12:16] LABS: Urine Blood 1+ (NEG); Urine Glucose NEGATIVE (NEG); Urine Protein NEGATIVE (NEG)
--- NOTE | 2019-01-27 12:34 | ER ---
Nurse's Notes [facility] Name: Chandrika Alexander Age: 33 yrs Sex: Female : 1985 Arrival Date: 01/27/2019 Time: 06:00 Bed 15 Private MD: Diagnosis: Schizophrenia;Suicidal ideations Presentation: 01/27 06:01 Presenting complaint: EMS states: they were toned out for report of pt with suicidal bb ideations and auditory hallucinations pt was at a hotel and police were called. Transition of care: patient was not received from another setting of care. Onset of symptoms is unknown. Risk Assessment: Do you want to hurt yourself or someone else? Patient reports no desire to harm self or others. Risk Assessment: Do you want to hurt yourself or someone else? Patient reports desire/thoughts of hurting themselves or someone else. Provider notified. Initial Sepsis Screen: Does the patient meet any 2 criteria? No. Patient's initial sepsis screen is negative. Does the patient have a suspected source of infection? No. Patient's initial sepsis screen is negative. Care prior to arrival: None. 06:01 Method Of Arrival: EMS: [facility] bb 06:01 Acuity: MAURI 2 bb Triage Assessment: 06:19 General: Appears in no apparent distress. comfortable, Behavior is calm, cooperative. cc3 Pain: Denies pain. EENT: No signs and/or symptoms were reported regarding the EENT system. Neuro: Level of Consciousness is awake, alert, obeys commands, Oriented to person, place, time, situation. Cardiovascular: Denies chest pain, Heart tones S1 S2 present Capillary refill < 3 seconds in bilateral fingers Patient's skin is warm and dry. Respiratory: Airway is patent Respiratory effort is even, unlabored, Respiratory pattern is regular, symmetrical, Breath sounds are clear bilaterally. GI: Abdomen is round non-distended, Bowel sounds present X 4 quads. Abd is soft and non tender X 4 quads. : No signs and/or symptoms were reported regarding the genitourinary system. Derm: Skin is intact, is healthy with good turgor, Skin is pink, warm \T\ dry. normal. Musculoskeletal: Circulation, motion, and sensation intact. Range of motion: intact in all extremities. ROPE RIDER: 06:03 unable to confirm last menstrual cycle bb Historical: - Allergies: 06:03 Unable to obtain; bb - Home Meds: 06:03 Unable to obtain [Active]; bb - PMHx: 06:03 Schizophrenia; bb - PSHx: 06:03 Unable to obtain; bb - Immunization history:: Adult Immunizations up to date. - Social history:: Smoking status: Patient uses tobacco products, unknown amount. - Ebola Screening: : No symptoms or risks identified at this time. Screenin:19 Abuse screen: Denies threats or abuse. Denies injuries from another. Nutritional cc3 screening: No deficits noted. Tuberculosis screening: No symptoms or risk factors identified. Fall Risk Ambulatory Aid- None/Bed Rest/Nurse Assist (0 pts). Gait- Normal/Bed Rest/Wheelchair (0 pts) Mental Status- Oriented to own ability (0 pts). Assessment: 06:19 General: see triage assessment. Patient belongings handed over to security personnel cc3 for safekeeping. 07:05 Reassessment: Patient appears in no apparent distress at this time. No changes from previously documented assessment. Sitter at bedside. 08:05 Reassessment: Patient appears in no apparent distress at this time. No changes from previously documented assessment. Sitter remains at bedside. 09:00 Reassessment: Patient appears in no apparent distress at this time. No changes from previously documented assessment. Patient and/or family updated on plan of care and expected duration. Pain level reassessed. 10:00 Reassessment: Patient appears in no apparent distress at this time. Patient and/or ca1 family updated on plan of care and expected duration. Pain level reassessed. 11:28 Reassessment: Report given to KRISSY Mcfarland at [facility]. ca1 11:39 Reassessment: Report given to Tom Harvey. Reassessment: PT resting. ca1 12:00 Reassessment: Patient appears in no apparent distress at this time. Pt ate lunch ca1 served. Sitter at bedside. 12:47 Reassessment: Patient appears in no apparent distress at this time. Pt resting. Eyes ca1 closed. Equal and unlabored breathing. Skin pink, warm and dry. 13:55 Reassessment: Patient appears in no apparent distress at this time. Patient and/or ca1 family updated on plan of care and expected duration. Pain level reassessed. Psych: 06:00 Safety Checks: Personal items have been removed. Door is open. No visitors are present cc3 at this time. sitter present. 06:06 Subjective: Patient's mood is euphoric, Hallucinations are auditory, Having thoughts of bb suicide. Plan for suicide is to cut her wrists. Objective: Patient is cooperative, guarded, Affect is inappropriate. Interventions: Removed personal items and placed in bag. Patient placed in hospital gown. Belonging list filled out. Suicide Risk Assessment: Sad Person Scale: Sex of patient: Female: Score 0 points. Age of patient: Score 1 point if patient 15-34. Depression: Score 1 point if signs of depression are present. Previous Attempt: Score 1 point if patient has previously attempted suicide. Rational Thinking: Score 1 point if patient is lacking rational thinking. Organized Plan: Score 1 point if patient had a plan in place. Chronic Sickness: Score 1 point if patient has illness, chronic, debilitating, or severe. TOTAL POINTS: If total points are 5-6, proposed clinical action is to strongly consider hospitalization, depending upon confidence in the follow-up arrangement. Implement suicide precautions. 06:19 Pt denies substance abuse. cc3 12:47 Commitment: Patient will be a voluntary commitment. Commitment papers completed. ca1 Vital Signs: 06:03 BP 114 / 73; Pulse 99; Resp 16 S; Temp 98.1(O); Pulse Ox 98% on R/A; Weight 90.72 kg bb (R); Height 5 ft. 5 in. (165.10 cm) (R); Pain 0/10; 13:02 BP 125 / 72; Pulse 89; Resp 16; Temp 98.9(O); Pulse Ox 98% ; lt1 06:03 Body Mass Index 33.28 (90.72 kg, 165.10 cm) ED Course: 06:00 Patient arrived in ED. jr8 06:00 Donald Bradley PA is PHCP. jr8 06:00 Samuel Mayes MD is Attending Physician. jr8 06:00 Safety Checks: Personal items have been removed. The door is open or patient has been cc3 placed in a hallway bed/chair. There are no family/friend visitors at this time Sitter present at this time. Other: dairy lab technician Robin. 06:01 Donald Bradley PA is PHCP. jr8 06:01 Samuel Mayes MD is Attending Physician. jr8 06:03 Triage completed. bb 06:03 Arm band placed on Patient placed in an exam room, on a stretcher, on pulse oximetry. bb 06:05 Safety checks: Items removed: yes. Door open/sign placed on door: yes. Family/friend ds4 present: no. Sitter present: Yes. 06:15 Safety Checks: Personal items have been removed. The door is open or patient has been cc3 placed in a hallway bed/chair. There are no family/friend visitors at this time Sitter present at this time. 06:15 Safety checks: Items removed: yes. Door open/sign placed on door: yes. Family/friend ds4 present: no. Sitter present: Yes. 06:19 Olivia Mao is Primary Nurse. cc3 06:19 Patient has correct armband on for positive identification. Placed in gown. Bed in low cc3 position. Call light in reach. Side rails up X2. Sitter at bedside. Cardiac monitoring not applicable on this patient. 06:30 Safety Checks: Personal items have been removed. The door is open or patient has been cc3 placed in a hallway bed/chair. There are no family/friend visitors at this time Sitter present at this time. 06:30 Safety checks: Items removed: yes. Door open/sign placed on door: yes. Family/friend ds4 present: no. Sitter present: Yes. 06:35 Inserted saline lock: 20 gauge in right antecubital area, using aseptic technique. cc3 Blood collected. 06:45 Safety Checks: Personal items have been removed. The door is open or patient has been cc3 placed in a hallway bed/chair. There are no family/friend visitors at this time Sitter present at this time. 06:45 Safety checks: Items removed: yes. Door open/sign placed on door: yes. Family/friend ds4 present: no. Sitter present: Yes. 06:58 Urine Drug Screen Sent. ds4 06:58 Salicylate Sent. ds4 06:58 Ptt, Activated Sent. ds4 06:58 PT-INR Sent. ds4 06:58 Hepatic Function Sent. ds4 06:58 ETOH Level Sent. ds4 06:58 CBC with Diff Sent. ds4 06:58 Basic Metabolic Panel Sent. ds4 06:58 Acetaminophen Sent. ds4 06:59 Urine Dipstick--Ancillary (enter results) Sent. ds4 07:00 Safety Checks: Personal items have been removed. The door is open or patient has been cc3 placed in a hallway bed/chair. There are no family/friend visitors at this time Sitter present at this time. 07:00 Safety checks: Items removed: yes. Door open/sign placed on door: yes. Family/friend ds4 present: no. Sitter present: Yes. 07:00 Report given to KRISSY Kent. cc3 07:00 IV discontinued, intact, bleeding controlled, No redness/swelling at site. Pressure cc3 dressing applied, patient intentionally pulled out her IV cannula. 07:10 Yoli Jackson, KRISSY is Primary Nurse. 07:15 Safety checks: Items removed: yes. Door open/sign placed on door: yes. Family/friend dh3 present: no. Sitter present: Yes. 07:30 Safety checks: Items removed: yes. Door open/sign placed on door: yes. Family/friend dh3 present: no. Sitter present: Yes. 07:45 Safety checks: Items removed: yes. Door open/sign placed on door: yes. Family/friend dh3 present: no. Sitter present: Yes. 08:00 Safety checks: Items removed: yes. Door open/sign placed on door: yes. Family/friend dh3 present: no. Sitter present: Yes. 08:09 Diet: Patient given a regular meal tray. dh3 08:15 Safety checks: Items removed: yes. Door open/sign placed on door: yes. Family/friend dh3 present: no. Sitter present: Yes. 08:30 Safety checks: Items removed: yes. Door open/sign placed on door: yes. Family/friend dh3 present: no. Sitter present: Yes. 08:45 Safety checks: Items removed: yes. Door open/sign placed on door: yes. Family/friend dh3 present: no. Sitter present: Yes. 09:00 Safety checks: Items removed: yes. Door open/sign placed on door: yes. Family/friend dh3 present: no. Sitter present: Yes. 09:15 Safety checks: Items removed: yes. Door open/sign placed on door: yes. Family/friend dh3 present: no. Sitter present: Yes. 09:30 Safety checks: Items removed: yes. Door open/sign placed on door: yes. Family/friend dh3 present: no. Sitter present: Yes. 09:45 Safety checks: Items removed: yes. Door open/sign placed on door: yes. Family/friend dh3 present: no. Sitter present: Yes. 10:00 Safety checks: Items removed: yes. Door open/sign placed on door: yes. Family/friend dh3 present: no. Sitter present: Yes. 10:15 Safety checks: Items removed: yes. Door open/sign placed on door: yes. Family/friend dh3 present: no. Sitter present: Yes. 10:27 Primary Nurse role handed off by Yoli Jackson RN ca1 10:27 Holly Rios RN is Primary Nurse. ca1 10:30 Safety checks: Items removed: yes. Door open/sign placed on door: yes. Family/friend dh3 present: no. Sitter present: Yes. 10:45 Safety checks: Items removed: yes. Door open/sign placed on door: yes. Family/friend jb1 present: no. Sitter present: Yes. 10:52 faxed patient records to the following facilities in the attempt to transfer patient; [facility], [facility], [facility], [facility], [facility], [facility], [facility], [facility], [facility], and [facility]. 10:56 initiated a transfer with Christal at the [facility] center. eb 11:00 Safety checks: Items removed: yes. Door open/sign placed on door: yes. Family/friend jb1 present: no. Sitter present: Yes. 11:15 faxed patient chart to [facility] as requested to [phone]. eb 11:15 Safety checks: Items removed: yes. Door open/sign placed on door: yes. Family/friend jb1 present: no. Sitter present: Yes. 11:30 Safety checks: Items removed: yes. Door open/sign placed on door: yes. Family/friend jb1 present: no. Sitter present: Yes. 11:35 connected the nurse from Tom Harvey with Holly RN for nurse to nurse report. eb 11:45 Safety checks: Items removed: yes. Door open/sign placed on door: yes. Family/friend jb1 present: no. Sitter present: Yes. 11:[address] Mcneill the psychiatrist trains service conductor for tom Harvey with Donald ALEJO for patient eb transfer consultation. 12:00 Safety checks: Items removed: yes. Door open/sign placed on door: yes. Family/friend lt1 present: no. Sitter present: Yes. 12:[address] Fleming from [facility] with Donald ALEJO for patient transfer eb consultation. 12:15 Safety checks: Items removed: yes. Door open/sign placed on door: yes. Family/friend lt1 present: no. Sitter present: Yes. 12:30 Safety checks: Items removed: yes. Door open/sign placed on door: yes. Family/friend lt1 present: no. Sitter present: Yes. 12:45 Safety checks: Items removed: yes. Door open/sign placed on door: yes. Family/friend lt1 present: no. Sitter present: Yes. 12:47 No provider procedures requiring assistance completed. ca1 13:00 Safety checks: Items removed: yes. Door open/sign placed on door: yes. Family/friend lt1 present: no. Sitter present: Yes. 13:15 Safety checks: Items removed: yes. Door open/sign placed on door: yes. Family/friend lt1 present: no. Sitter present: Yes. 13:30 Safety checks: Items removed: yes. Door open/sign placed on door: yes. Family/friend lt1 present: no. Sitter present: Yes. 13:45 Safety checks: Items removed: yes. Door open/sign placed on door: yes. Family/friend lt1 present: no. Sitter present: Yes. Administered Medications: 11:20 Drug: Lexapro 10 mg Route: PO; ca1 13:57 Follow up: Response: No adverse reaction ca1 11:25 Drug: ZyPREXA 5 mg Route: PO; ca1 13:57 Follow up: Response: No adverse reaction ca1 11:58 Drug: hydrOXYzine 25 mg Route: PO; ca1 13:57 Follow up: Response: No adverse reaction ca1 Outcome: 12:33 ER care complete, transfer ordered by MD. gould 13:56 Transferred by ground EMS to other acute care facility: [facility]. Transfer ca1 form completed. 13:56 Condition: stable 13:56 Instructed on the need for transfer. 13:58 Patient left the ED. ca1 Signatures: Franc Esteban jb1 Lynette Laird, RN RN bb Donald Bradley PA PA jr8 Robin Schmid ds4 Yoli Jackson RN RN Katarzyna Mata 3 Belen Morse Charlene cc3 Holly Rios RN RN ca1 Sandra Cowan 1 Corrections: (The following items were deleted from the chart) 06:59 06:19 General: see triage assessment. cc3 cc3
--- NOTE | 2019-01-27 12:35 | EDPHYS ---
Physician Documentation [facility] Name: Chandrika Alexander Age: 33 yrs Sex: Female : 1985 Arrival Date: 01/27/2019 Time: 06:00 Bed 15 Private MD: ED Physician Samuel Mayes HPI: 01/27 06:06 This 33 yrs old Female presents to ER via EMS with complaints of Psych jr8 Problem, Suicidal Ideation. 06:06 The patient presents to the emergency department with suicide ideation, and the patient jr8 has a plan, to cut oneself and bleed, to overdose with medications. Onset: The symptoms/episode began/occurred this morning. Past psychiatric history: Prior diagnosis: schizophrenia, the patient has a previous inpatient psychiatric history, at [facility]. Associated signs and symptoms: Pertinent positives; hallucinations. Severity of symptoms: At their worst the symptoms were severe in the emergency department the symptoms are unchanged. The patient has experienced similar episodes in the past. police called out to [employer] for patient acting funny. Pt states she is suicidal and needs to go to hospital. Pt states her plan is to overdose on pills or cut her wrists. [employer]IP: 06:03 unable to confirm last menstrual cycle bb Historical: - Allergies: 06:03 Unable to obtain; bb - Home Meds: 06:03 Unable to obtain [Active]; bb - PMHx: 06:03 Schizophrenia; bb - PSHx: 06:03 Unable to obtain; bb - Immunization history:: Adult Immunizations up to date. - Social history:: Smoking status: Patient uses tobacco products, unknown amount. - Ebola Screening: : No symptoms or risks identified at this time. ROS: 06:55 Constitutional: Negative for fever, chills, and weight loss, Eyes: Negative for injury, jr8 pain, redness, and discharge, ENT: Negative for injury, pain, and discharge, Neck: Negative for injury, pain, and swelling, Cardiovascular: Negative for chest pain, palpitations, and edema, Respiratory: Negative for shortness of breath, cough, wheezing, and pleuritic chest pain, Abdomen/GI: Negative for abdominal pain, nausea, vomiting, diarrhea, and constipation, Back: Negative for injury and pain, MS/Extremity: Negative for injury and deformity, Skin: Negative for injury, rash, and discoloration. 06:55 Neuro: Positive for hallucinations, SI. Exam: 06:56 Constitutional: This is a well developed, well nourished patient who is awake, alert, jr8 and in no acute distress. Head/Face: Normocephalic, atraumatic. Eyes: Pupils equal round and reactive to light, extra-ocular motions intact. Lids and lashes normal. Conjunctiva and sclera are non-icteric and not injected. Cornea within normal limits. Periorbital areas with no swelling, redness, or edema. ENT: Nares patent. No nasal discharge, no septal abnormalities noted. Tympanic membranes are normal and external auditory canals are clear. Oropharynx with no redness, swelling, or masses, exudates, or evidence of obstruction, uvula midline. Mucous membranes moist. Neck: Trachea midline, no thyromegaly or masses palpated, and no cervical lymphadenopathy. Supple, full range of motion without nuchal rigidity, or vertebral point tenderness. No Meningismus. Chest/axilla: Normal chest wall appearance and motion. Nontender with no deformity. No lesions are appreciated. Cardiovascular: Regular rate and rhythm with a normal S1 and S2. No gallops, murmurs, or rubs. Normal PMI, no JVD. No pulse deficits. Respiratory: Lungs have equal breath sounds bilaterally, clear to auscultation and percussion. No rales, rhonchi or wheezes noted. No increased work of breathing, no retractions or nasal flaring. Abdomen/GI: Soft, non-tender, with normal bowel sounds. No distension or tympany. No guarding or rebound. No evidence of tenderness throughout. Back: No spinal tenderness. No costovertebral tenderness. Full range of motion. Neuro: Awake and alert, GCS 15, oriented to person, place, time, and situation. Cranial nerves II-XII grossly intact. Motor strength 5/5 in all extremities. Sensory grossly intact. Cerebellar exam normal. Normal gait. 06:56 Psych: Behavior/mood is suicidal, Affect is flat, Patient having thoughts of suicide. Plan for suicide is to cut wrists and overdose on pills Judgement / Insight is impaired. Delusions/hallucinations are present and described as pt reports auditory hallucinations that tell her to harm herself. Vital Signs: 06:03 BP 114 / 73; Pulse 99; Resp 16 S; Temp 98.1(O); Pulse Ox 98% on R/A; Weight 90.72 kg bb (R); Height 5 ft. 5 in. (165.10 cm) (R); Pain 0/10; 13:02 BP 125 / 72; Pulse 89; Resp 16; Temp 98.9(O); Pulse Ox 98% ; lt1 06:03 Body Mass Index 33.28 (90.72 kg, 165.10 cm) bb MDM: 06:00 Patient medically screened. jr8 09:28 Data reviewed: vital signs, nurses notes, lab test result(s), EKG. Physician bryanna consultation: Vaeh Awad MD was called at 08:45, was contacted at 08:45, regarding consult, and will see patient in ED. 10:40 ED course: Dr. Awad Psychiatry came and evaluated patient. Hesitant to send jr8 patient home at this time because she has had two attempts in past and no good support system currently. Will put patient on meds here and reassess in next [address] her. Dr. Awad will also see patient tomorrow morning in ED if still here . 12:05 ED course: Both [facility] under Dr. Mcneill and [facility] under Dr. Fleming jr8 has called to do Doc-Doc. Both accepted. Awaiting for administrative approval from one of the facilities . 01/27 06:16 Order name: Acetaminophen; Complete Time: 10:37 01/27 06:16 Order name: Basic Metabolic Panel; Complete Time: 10:37 01/27 06:16 Order name: CBC with Diff; Complete Time: 07:36 01/27 06:16 Order name: ETOH Level; Complete Time: 10:37 8 01/27 06:16 Order name: Hepatic Function; Complete Time: 10:37 01/27 06:16 Order name: PT-INR; Complete Time: 07:36 01/27 06:16 Order name: Ptt, Activated; Complete Time: 07:36 01/27 06:16 Order name: Salicylate; Complete Time: 07:36 01/27 06:16 Order name: Urine Drug Screen; Complete Time: 07:36 01/27 06:57 Order name: Urine Dipstick--Ancillary (enter results); Complete Time: 12:18 ds4 01/27 06:58 Order name: Urine --Ancillary (enter results); Complete Time: 12:18 ds4 01/27 06:16 Order name: Urine Test (obtain specimen); Complete Time: 06:56 8 01/27 06:16 Order name: EKG; Complete Time: 06:17 01/27 06:16 Order name: EKG - Nurse/Tech; Complete Time: 06:31 8 01/27 06:16 Order name: IV Saline Lock; Complete Time: 06:41 8 01/27 06:16 Order name: Labs collected and sent; Complete Time: 06:41 [facility] 01/27 06:16 Order name: Urine Dipstick-Ancillary (obtain specimen); Complete Time: 06:56 8 01/27 06:18 Order name: Diet Finger Food; Complete Time: 06:19 8 01/27 07:15 Order name: Diet Regular; Complete Time: 07:16 dh3 Administered Medications: 11:20 Drug: Lexapro 10 mg Route: PO; ca1 13:57 Follow up: Response: No adverse reaction ca1 11:25 Drug: ZyPREXA 5 mg Route: PO; ca1 13:57 Follow up: Response: No adverse reaction ca1 11:58 Drug: hydrOXYzine 25 mg Route: PO; ca1 13:57 Follow up: Response: No adverse reaction ca1 Disposition: 01/28 09:14 Co-signature as Attending Physician, Samuel Mayes MD I agree with the assessment and kdr plan of care. Disposition: 01/27/19 12:33 Transfer ordered to Psych Facility. Diagnosis are Schizophrenia, Suicidal ideations. - Reason for transfer: Higher level of care. - Accepting physician is Dr. Fleming. - Condition is Stable. - Problem is new. - Symptoms are unchanged. Signatures: Dispatcher [employer] EDCA Samuel Mayes MD MD [facility] Lynette Laird RN RN Donald Chowdhury PA PA 8 Holly Rios RN RN ca1 Corrections: (The following items were deleted from the chart) 01/27 13:58 12:33 01/27/2019 12:33 Transfer ordered to Psych Facility. Diagnosis is Schizophrenia; ca1 Suicidal ideations. Reason for transfer: Higher level of care. Accepting physician is Dr. Fleming. Condition is Stable. Problem is new. Symptoms are unchanged. jr8
[2019-01-27 14:18] VITALS: O2SAT 98
[2019-01-27 14:19] VITALS: BP 125/72; TEMP 98.9
--- NOTE | 2019-01-28 08:18 | CON ---
Subjective: Ms. Alexander is a 33-year-old female who was seen in the ER on consultation by ER physician to evaluate and recommend management. Patient was brought to the by the local police on account of patient expressing she is having auditory hallucination commanding her to kill herself, urine toxicology screen done at the time of presentation was positive for cocaine. On interview, patient is cooperative, she admits to recurrent history of auditory hallucinations states the voice is that of a female and always telling her to kill herself or says derogatory things to her. Patient reports no intent or plan to harm herself. She admits to past history of suicide attempts. First episode at age 17 via overdose and second episode at age 20 she slashed her wrist. She admits to have snorted cocaine a few days prior to presentation to the ER. She does report significant history of anxiety, describes as excessive nervousness, jitteriness, restlessness racing thoughts and palpitation, no history of panic attack currently She endorses mind depressed mood, but no history of anhedonia, hopelessness or helplessness, says sleep is poor. Patient was reluctant to identify triggers for her current cocaine abuse and depressive symptoms. Patient stays she does not have any social support, says she is homeless. However, on chart review, patient was brought to the ER from a hotel by the local police. She does endorse past multiple acute psych inpatient hospitalization, states she has been on medication in the past, but she could not remember the names of medications she was taking. She does endorse abuse of other substances such as methamphetamine, last use a year ago, and smokes marijuana regularly. She states that she smokes/snort cocaine both in crack form and in powder form. No history of bipolar disorder reported. No history of PTSD. No other relevant history could be obtained at this time as there is no collateral information. Objective: Vital Signs: Blood pressure is 106/68, pulse is 72, and temperature is 97.8. Mental Status Examination: Patient is a well-nourished female, looking unkempt, not in any acute distress. She is superficially cooperative with interview. Concentration and memory are poor. She is alert and oriented x3. Mild psychomotor agitation noted. Speech is spontaneous, normal in rate, volume and rhythm. No hyperverbal or pressured speech noted. Mood, she described as anxious and dysphoric. Affect is mood congruent. Thought process , linear, at times circumstantial, but not disorganized. No flight of ideas noted. No suicidal or homicidal ideation; however, she states she does have auditory hallucination commanding her to hurt herself. Patient has no intents or plan. No rumination or obsession observed. Insight and judgement were considered as poor. Fund of knowledge is fair. Language is fair. Assessment: A 33-year-old female with history of multiple substance abuse, presented with command auditory hallucination, instructing her to kill herself in the context of cocaine intoxication Patient has no plan or intent. She does have significant past episode of suicide attempt. She does not have adequate social support, claims to be homeless, however, was brought to the ER by the police from a hotel. Diagnoses: 1. Cocaine induced psychosis. 2. Cocaine intoxication. 3. Schizophrenia by history. Plan: 1. Recommend observation for another 24 hours. 2. Start Vistaril 25 mg p.o. b.i.d. for anxiety. 3. Start Lexapro 10 mg P.O. daily for depressive and anxiety symptoms. 4. Start olanzapine 5 mg p.o. at bedtime for psychotic symptoms. 5. Psychiatry followup patient tomorrow for further evaluation. 6. Thank you for the consult DIEGO/JULISSA Voice ID: [id number] Report ID: [id number]
== END 2019-01-27 13:58 ==
LOC: ER 05:52
DX: F20.9 Schizophrenia, unspecified (principal); R45.851 Suicidal ideations; Z72.0 Tobacco use
CPT/HCPCS: 36415; 80048; 80076; 80307; 80320; 80329; 81003; 81025; 85025; 85610; 85730; 93005; 99285

== ENCOUNTER 2024-02-01 01:20 | Emergency (ER) | payer OTHER ==
[2024-02-01 02:13] LABS: Absolute Lymphocytes (CBC) 2.2 K/uL (0.7-4.9); Absolute Monocytes 0.4 K/uL (0.1-1.3); Absolute Neutrophil 4.7 K/uL (1.8-8.0); Basophils % 0.5 % (0-1.3); Eosinophils % 0.5 % (0-4.4); Hematocrit 33.4 % (36.0-45.0); Hemoglobin 11.1 g/dL (12.0-15.0); MCH 28.4 pg (27.0-35.0); MCHC 33.2 g/dL (32.0-36.0); MCV 85.6 fL (80-100); MPV 7.4 fL (7.6-11.3); Monocytes % 5.9 % (3.3-12.3); Neutrophils % 63.1 % (41.7-73.7); Platelets 270 thou/uL (152-406); Red Cell Distribution Width 15.2 % (12.1-15.2)
[2024-02-01 02:14] LABS: PT Prothrombin Time 11.6 SECONDS (9.4-12.5); PTT, Activated Partial Thromb 34.1 SECONDS (24.3-36.9); Protime INR 1.04
[2024-02-01] MEDS ORDERED: DIAZEPAM 5 MG TABLET ONE (02:14)
[2024-02-01 02:27] LABS: ALT/SGPT 18 U/L (13-56); AST/SGOT 15 U/L (15-37); Albumin 3.2 g/dL (3.4-5.0); Albumin/Globulin Ratio 0.8 (1.1-1.8); Alkaline Phosphatase 72 U/L (45-117); Anion Gap 6.7 mEq/L (5.0-15.0); BUN Blood Urea Nitrogen 18 mg/dL (7-18); Bicarbonate 25 mEq/L (21-32); Bilirubin Total 0.3 mg/dL (0.2-1.0); Globulin 3.8 g/dL (2.3-3.5); Glomerular Filtration Rate 83 ml/min (=/>90); Glucose Level 100 mg/dL (74-106); Potassium 3.7 mEq/L (3.5-5.1); Sodium Level 139 mEq/L (136-145)
[2024-02-01 02:28] LABS: Bilirubin Direct < 0.2 mg/dL (0-0.2); Bilirubin Indirect, Calculated 0.1 mg/dL (0.2-0.8)
--- NOTE | 2024-02-01 03:44 | ER ---
Nurse's Notes [facility] Name: Chandrika Alexander Age: 38 yrs Sex: Female : 1985 Arrival Date: 02/01/2024 Time: 01:20 Bed 16 Private MD: Diagnosis: Acute exacerbation of chronic depression, suicidal ideation with plan Presentation: 01/31 01:36 Chief complaint: Patient states: PT [facility] [employer] [facility] AND br2 WAS CHECKED ON PD WHICH THEN CALLED EMS DUE TO PT STATING SHE WANTS TO SLIT HER WRIST. PT WAS RECENTLY ELOPED FROM [facility].. WHEN TALKING TO PT SHE IS LUCID FOR A SHORT AMOUNT OF TIME THEN SPEAKS IN [place] AND END PHRASES WITH "ALICE ERIK" . PT IS HOMELESS AND STATES SHE NEEDS HELP GETTING INTO A NURSING HOME. Coronavirus screen: At this time, unable to obtain information related to travel outside the [place] Ebola Screen: No symptoms or risks identified at this time. Initial Sepsis Screen: Does the patient meet any 2 criteria? No. Patient's initial sepsis screen is negative. Does the patient have a suspected source of infection? No. Patient's initial sepsis screen is negative. Risk Assessment: Do you want to hurt yourself or someone else? Patient reports desire/thoughts of hurting themselves or someone else. Provider notified. Onset of symptoms is unknown. 01:36 Method Of Arrival: EMS: [facility] br2 01:36 Acuity: MAURI 2 br2 Triage Assessment: 01:45 General: Appears obese, unkempt, Behavior is cooperative. Pain: Denies pain. EENT: No br2 signs and/or symptoms were reported regarding the EENT system. Neuro: Aviles Agitation-Sedation Scale (RASS): 0 - Alert and Calm Level of Consciousness is awake, alert, obeys commands, Oriented to person. Cardiovascular: Capillary refill < 3 seconds. Respiratory: Airway is patent Respiratory effort is even, unlabored, Respiratory pattern is regular, symmetrical. GI: No signs and/or symptoms were reported involving the gastrointestinal system. Abdomen is non-distended, obese. : No signs and/or symptoms were reported regarding the genitourinary system. Derm: No signs and/or symptoms reported regarding the dermatologic system. Musculoskeletal: No signs and/or symptoms reported regarding the musculoskeletal system. Historical: - Allergies: 01:45 No Known Allergies; br2 - PMHx: 01:45 Schizophrenia; br2 - Immunization history:: Adult Immunizations not up to date. - Infectious Disease History:: Denies. - Social history:: Smoking status: Patient reports the use of cigarette tobacco products, smokes three packs cigarettes per day. Patient uses alcohol, street drugs, PATIENT WOULDN'T ANSWER. - Family history:: not pertinent. - Unable to obtain history due to: patient's speech is incomprehensible. Screenin:29 [facility] ED Fall Risk Assessment (Adult) History of falling in the last 3 months, br2 including since admission No falls in past 3 months (0 pts) Confusion or Disorientation Yes (5 pts) Intoxicated or Sedated No (0 pts) Impaired Gait No (0 pts) Mobility Assist Device Used No (0 pt) Altered Elimination No (0 pt) Score/Fall Risk Level 0 - 2 = Low Risk Maintained a safe environment. Abuse screen: Denies threats or abuse. Denies injuries from another. Nutritional screening: No deficits noted. Tuberculosis screening: No symptoms or risk factors identified. Assessment: 01:51 Reassessment: No changes from previously documented assessment. SEE TRIAGE ASSESSMENT. br2 02:40 Reassessment: No changes from previously documented assessment. Patient and/or family rg5 updated on plan of care and expected duration. Pain level reassessed. Neuro: Level of Consciousness is awake, alert. Respiratory: Airway is patent Respiratory effort is even, unlabored, Respiratory pattern is regular, symmetrical. Musculoskeletal: Circulation, motion, and sensation intact. Range of motion:. 03:58 Reassessment: No changes from previously documented assessment. Patient and/or family rg5 updated on plan of care and expected duration. Pain level reassessed. 03:58 Respiratory: Airway is patent Respiratory effort is even, unlabored, Respiratory rg5 pattern is regular, symmetrical. Vital Signs: 01:30 BP 109 / 77; Pulse 92; Resp 18; Temp 98.1; Pulse Ox 99% on R/A; Pain 0/10; rg5 01:36 BP 109 / 77; Pulse 92; Resp 18 S; Temp 97.2; Pulse Ox 99% on R/A; Weight 90.72 kg; br2 Height 5 ft. 5 in. ; Pain 0/10; 02:30 BP 110 / 75; Pulse 90; Resp 17; Pulse Ox 100% ; Pain 0/10; rg5 03:58 BP 124 / 83; Pulse 88; Resp 17; Pulse Ox 94% on R/A; Pain 0/10; rg5 01:36 Body Mass Index 33.28 (90.72 kg, 165.1 cm) br2 01:30 Pain Scale: Adult rg5 01:36 Pain Scale: Adult br2 02:30 Pain Scale: Adult rg5 03:58 Pain Scale: Adult rg5 ED Course: 01:29 Patient arrived in ED. kmf 01:29 Patient has correct armband on for positive identification. Placed in gown. Bed in low br2 position. Call light in reach. Side rails up X2. Valuables inventory done. AT NURSES STATION . Provided Education on: PLAN OF CARE. 01:29 Arm band placed on right wrist. br2 01:29 Diet: Patient given a regular meal tray. br2 01:32 Toño Venegas RN is Primary Nurse. rg5 01:38 Yoel Franks MD is Attending Physician. sp4 01:42 Triage completed. br2 01:45 Inserted saline lock: 20 gauge in right antecubital area, using aseptic technique. rg5 Blood collected. Flushed with 10 mL NS. 02:12 Acetaminophen Sent. br2 02:12 Basic Metabolic Panel Sent. br2 02:12 CBC with Diff Sent. br2 02:12 ETOH Level Sent. br2 02:12 Hepatic Function Sent. br2 02:12 PT-INR Sent. br2 02:12 Test, Urine Sent. br2 02:12 Ptt, Activated Sent. br2 02:12 Salicylate Sent. br2 02:12 Urinalysis w/ reflexes Sent. br2 02:30 Noise minimized. Lights dimmed. Warm blanket given. Pillow given. Diet tray given. PO br2 fluids given. 02:42 faxed pt clinical's to eva euceda, tom hernandez, [facility], [facility]. 02:52 No apparent distress. Resting quietly. Appears to be sleeping. rg5 02:53 No provider procedures requiring assistance completed. rg5 03:58 IV discontinued, bleeding controlled, No redness/swelling at site. Pressure dressing rg5 applied. 04:10 pt was accepted to [facility] by Corina Ramirez \\[id number]. Admin approval given kmf by Demi Diane \\[id number]. [facility] to transfer pt.. Administered Medications: 02:23 Drug: Diazepam PO 10 mg PO once Route: PO; br2 02:30 Follow up: Response: No adverse reaction rg5 Medication: 01:29 VIS not applicable for this client. br2 Outcome: 03:44 ER care complete, transfer ordered by MD. amato 03:58 Transferred by ground EMS rg5 03:58 Condition: stable 03:58 Discharge instructions given to EMS, 03:58 Patient left the ED. rg5 Signatures: Yoel Franks MD MD sp4 Gisele Copeland [facility] Toño Venegas RN RN rg5 Yanely Lezama RN RN br2 Corrections: (The following items were deleted from the chart) 01:43 01:36 Chief complaint: Patient states: PT WAS PICKED UP WALKING IN [place] [id number] [address] AND WAS CHECKED ON PD WHICH THEN CALLED EMS DUE TO PT STATING SHE WANTS TO SLIT HER WRIST. PT WAS RECENTLY ELOPED FROM [facility].. WHEN TALKING TO PT SHE IS LUCID FOR A SHORT AMOUNT OF TIME THEN SPEAKS IN [place] AND END PHRASES WITH "ALICE ERIK" br2 01:46 01:44 Allergies: Unable to obtain; br2 br2 01:56 01:55 Inserted saline lock: 20 gauge in right antecubital area, using aseptic rg5 technique. Blood collected. Flushed with 10 mL NS rg5 02:28 01:45 Arm band placed on right wrist. br2 br2 04:08 04:07 Patient left the ED. rg5 rg5
--- NOTE | 2024-02-01 03:44 | EDPHYS ---
Physician Documentation [facility] Name: Chandrika Alexander Age: 38 yrs Sex: Female : 1985 Arrival Date: 02/01/2024 Time: 01:20 Bed 16 Private MD: ED Physician Yoel Franks HPI: 01/31 01:39 This 38 yrs old Other Race Female presents to ER via Unassigned with complaints of sp4 Suicidal ideation . 03:41 38-year-old female found by the police on the downtown [place] wandering sp4 aimlessly. Patient states she was just released from [facility]. Patient states she is suicidal and she has plans to slit her own wrists. Patient was brought here by EMS.. Historical: - Allergies: 01:45 No Known Allergies; br2 - PMHx: 01:45 Schizophrenia; br2 - Immunization history:: Adult Immunizations not up to date. - Infectious Disease History:: Denies. - Social history:: Smoking status: Patient reports the use of cigarette tobacco products, smokes three packs cigarettes per day. Patient uses alcohol, street drugs, PATIENT WOULDN'T ANSWER. - Family history:: not pertinent. - Unable to obtain history due to: patient's speech is incomprehensible. ROS: 03:41 Constitutional: Negative for fever, chills, and weight loss, positive suicidal ideation sp4 with plan. Positive for depression 03:41 All other systems are negative, Exam: 03:40 Constitutional: This is a well developed, well nourished patient who is awake, alert, sp4 and in no acute distress. Head/Face: Normocephalic, atraumatic. Eyes: Pupils equal round and reactive to light, extra-ocular motions intact. Lids and lashes normal. Conjunctiva and sclera are not injected. Cornea within normal limits. Periorbital areas with no swelling, redness, or edema. ENT: Nares patent. No nasal discharge, no septal abnormalities noted. Tympanic membranes are normal and external auditory canals are clear. Oropharynx with no redness, swelling, or masses, exudates, or evidence of obstruction, uvula midline. Mucous membranes moist. Neck: Trachea midline, no thyromegaly or masses palpated, and no cervical lymphadenopathy. Supple, full range of motion without nuchal rigidity, or vertebral point tenderness. Chest/axilla: Normal chest wall appearance and motion. Nontender with no deformity. No lesions are appreciated. Cardiovascular: Regular rate and rhythm with a normal S1 and S2. No gallops, murmurs, or rubs. Normal PMI, no JVD. No pulse deficits. Respiratory: Lungs have equal breath sounds bilaterally, clear to auscultation and percussion. No rales, rhonchi or wheezes noted. No increased work of breathing, no retractions or nasal flaring. Abdomen/GI: Soft, with normal bowel sounds. No distension or tympany. No guarding or rebound. No evidence of tenderness throughout. Back: No spinal tenderness. No costovertebral tenderness. Skin: Warm, dry with normal turgor. Normal color with no rashes, no lesions, and no evidence of cellulitis. MS/ Extremity: Pulses equal, no cyanosis. Neurovascular intact. Full, normal range of motion. Neuro: Awake and alert, GCS 15, oriented to person, place, time, and situation. Cranial nerves II-XII grossly intact. Motor strength 5/5 in all extremities. Sensory grossly intact. Psych: Awake, alert, with orientation to person, place and time. Behavior, mood, and affect are within normal limits 03:40 ECG was reviewed by the Attending Physician. EKG at 0 154 Vital Signs: 01:30 BP 109 / 77; Pulse 92; Resp 18; Temp 98.1; Pulse Ox 99% on R/A; Pain 0/10; rg5 01:36 BP 109 / 77; Pulse 92; Resp 18 S; Temp 97.2; Pulse Ox 99% on R/A; Weight 90.72 kg; br2 Height 5 ft. 5 in. ; Pain 0/10; 02:30 BP 110 / 75; Pulse 90; Resp 17; Pulse Ox 100% ; Pain 0/10; rg5 03:58 BP 124 / 83; Pulse 88; Resp 17; Pulse Ox 94% on R/A; Pain 0/10; rg5 01:36 Body Mass Index 33.28 (90.72 kg, 165.1 cm) br2 01:30 Pain Scale: Adult rg5 01:36 Pain Scale: Adult br2 02:30 Pain Scale: Adult rg5 03:58 Pain Scale: Adult rg5 MDM: 01:40 Medical Screening Exam initiated sp4 03:41 Differential diagnosis: drug withdrawal. acute psychotic break, depression, psychosis sp4 secondary to non-compliance. Data reviewed: vital signs, nurses notes, EMS record, old medical records, lab test result(s), EKG. Consideration of Admission/Observation Escalation of care including admission/observation considered. Management of patient was discussed with the following: [place]: Attending psychiatrist. ED course: Positive for suicidal ideation and plan. Plan to transfer to psychiatric hospital.. 03:54 ED course: Patient is now departing to [facility] in stable condition. sp4 01/31 01:40 Order name: Acetaminophen; Complete Time: 03: sp4 01/31 01:40 Order name: Basic Metabolic Panel; Complete Time: 03: sp4 01/31 01:40 Order name: CBC with Diff; Complete Time: 03: sp4 01/31 01:40 Order name: ETOH Level; Complete Time: 03: sp4 01/31 01:40 Order name: Hepatic Function; Complete Time: 03: sp4 01/31 01:40 Order name: PT-INR; Complete Time: 03: sp4 01/31 01:40 Order name: Ptt, Activated; Complete Time: 03: sp4 01/31 01:40 Order name: Salicylate; Complete Time: : sp4 01/31 01:40 Order name: EKG - Nurse/Tech; Complete Time: 02:11 sp4 01/31 01:40 Order name: IV Saline Lock; Complete Time: :54 sp4 01/31 01:40 Order name: Labs collected and sent; Complete Time: 54 sp4 01/31 01:40 Order name: Suicide Precautions; Complete Time: 02:12 sp4 01/31 01:40 Order name: Suicide Screening ([place]); Complete Time: 02:12 sp4 EC:40 Rate is 81 beats/min. Rhythm is regular, Normal Sinus Rhythm. QRS [place] is Normal. ID sp4 interval is normal. QRS interval is normal. QT interval is normal. No Q waves. T waves are Normal. No ST changes noted. Clinical impression: Normal ECG. Interpreted by me. Reviewed by me. Administered Medications: 02:23 Drug: Diazepam PO 10 mg PO once Route: PO; br2 02:30 Follow up: Response: No adverse reaction rg5 Disposition Summary: 02/01/24 03:44 Transfer Ordered Notes: Transfer Location: [facility] Facility sp4 Reason: Higher level of care sp4 Condition: Stable sp4 Problem: new sp4 Symptoms: have improved sp4 Accepting Physician: Attending psychiatrist(02/01/24 04:07) rg5 Diagnosis - Acute exacerbation of chronic depression, suicidal ideation with plan sp4 Discharge Instructions: - Discharge Summary Sheet kmf Forms: - Medication Reconciliation Form kmf - SBAR form kmf Signatures: Dispatcher [employer] EDYoel Alvarez MD MD sp4 Toño Venegas RN RN rg5 Yanely Lezama RN RN br2 Corrections: (The following items were deleted from the chart) 01:41 01:40 ACETAMINOPHEN+C.LAB.BRZ ordered. EDMS EDMS 01:41 01:40 BASIC METABOLIC PANEL+C.LAB.BRZ ordered. EDMS EDMS 01:41 01:40 CBC+H.LAB.BRZ ordered. EDMS EDMS 01:41 01:41 ETHANOL+C.LAB.BRZ ordered. EDMS EDMS 01:41 01:41 HEPATIC FUNCTION+C.LAB.BRZ ordered. EDMS EDMS 01:41 01:41 PROTIME (+INR)+COAG.LAB.BRZ ordered. EDMS EDMS 01:41 01:41 Test, Urine+UC.LAB.BRZ ordered. EDMS EDMS 01:41 01:41 PTT, ACTIVATED+COAG.LAB.BRZ ordered. EDMS EDMS 01:41 01:41 SALICYLATE+C.LAB.BRZ ordered. EDMS EDMS 01:41 01:41 Urinalysis+U.LAB.BRZ ordered. EDMS EDMS 01:41 01:41 URINE DRUG SCREEN+UC.LAB.BRZ ordered. EDMS EDMS 01:46 01:44 Allergies: Unable to obtain; br2 br2 04:07 03:44 Attending psychiatrist sp4 rg5
[2024-02-01 04:22] VITALS: TEMP 97.2
[2024-02-01 04:34] VITALS: BP 124/83; O2SAT 94
--- NOTE | 2024-02-01 12:13 | EKG ---
Test Date: 2024-02-01 Test Time: 01:54:00 Cloth Wire Weaver: LEOPOLDO MEASUREMENT RESULTS: Intervals: Rate: 81 SC: 142 QRSD: 82 QT: 392 QTc: 455 [place]: P: 74 SC: 142 QRS: 18 T: 65 INTERPRETIVE STATEMENTS: Sinus rhythm with occasional and consecutive premature ventricular complexes and fusion complexes Abnormal ECG Compared to ECG 01/27/2019 06:24:53 Fusion complex(es) now present Ventricular premature complex(es) now present Left ventricular hypertrophy no longer present Electronically Signed On 02-01-24 12:12:49 PUBLIC BATH ATTENDANT by Ras May
== END 2024-02-01 04:07 ==
LOC: ER 01:20
DX: F32.A Depression, unspecified (principal); R45.851 Suicidal ideations; F17.210 Nicotine dependence, cigarettes, uncomplicated
CPT/HCPCS: 36415; 80048; 80076; 80143; 80179; 82077; 85025; 85610; 85730; 93005; 99285